=== PATIENT | female | born 1995 ===

== ENCOUNTER 2025-02-21 15:58 | Emergency (ER) | payer OTHER ==
[~2025-02-21] VITALS: Ht 172.7 cm; Wt 62.1 kg
[2025-02-21 16:07] VITALS: BP 121/76; PULSE 85; RESP 16; TEMP 98.7; O2SAT 100
== END 2025-02-21 20:15 | disposition left against medical advice (07) ==
LOC: ER 15:59
DX: K08.89 Other specified disorders of teeth and supporting structures (principal); Z53.21 Procedure and treatment not carried out due to patient leaving prior to being seen by health care provider